=== PATIENT | male | born 1950 | race Caucasian/White ===

== ENCOUNTER → 2019-03-30 | Outpatient (CLI) | payer MEDICARE ==
[2019-03-30 10:38] LABS: African American GFR (CKD) >90 (>60 ml/min/1.73 sqM); Blood Urea Nitrogen 18 mg/dL (9-20); Non-African American GFR(CKD) >90 (>60 ml/min/1.73 sqM)
--- NOTE | 2019-03-30 11:16 | CT ---
EXAMINATION TYPE: CT angio chest DATE OF EXAM: 03/30/2019 11:03 AM COMPARISON: None HISTORY: SOB, chest pressure, cough CT DLP: 417.8 mGycm Automated exposure control for dose reduction was used. CONTRAST: CTA scan of the thorax is performed with IV Contrast, patient injected with 67 mL of Isovue 370, pulm onary embolism protocol. . FINDINGS: LUNGS: The lungs are grossly clear, there is no concerning parenchymal mass or nodule identified. T here are a few tiny pleural-based and intraparenchymal 2 mm nodules scattered throughout the bilatera l lungs, which are nonspecific. There is no pleural effusion or pneumothorax seen. The tracheobronch ial tree is patent. MEDIASTINUM: There is satisfactory enhancement of the pulmonary artery and its branches, there is no CT evidence for pulmonary embolism. There are no greater than 1 cm hilar or mediastinal lymph nodes. No pericardial effusion is seen. The ascending thoracic aorta measures up to 4.7 cm. OTHER: A large gallstone is seen in the gallbladder measuring up to 2.5 cm. IMPRESSION: NO EVIDENCE OF PULMONARY EMBOLISM. NO ACUTE INTRATHORACIC PROCESS. ECTASIA OF THE DESCENDING THORACIC AORTA MEASURING UP TO 4.7 CM. CHOLELITHIASIS.
== END | disposition home or self-care (01) ==
LOC: RADCTMAIN 09:54
PROVIDERS: ATTEND Internal Medicine Geriatric Medicine
DX: I77.810 Thoracic aortic ectasia (principal); R06.02 Shortness of breath
CPT/HCPCS: 82565; 84520; 71275; 36415; Q9967

== ENCOUNTER 2021-10-26 20:48 | Inpatient (IN) | payer MEDICARE ==
[2021-10-26] MEDS ORDERED: SODIUM CHLORIDE 0.9% 1,000 ML IV STA (21:48)
[2021-10-26] MEDS ORDERED: ONDANSETRON 4 MG/2 ML VIAL IVP STA (21:48)
[2021-10-26] MEDS ORDERED: MORPHINE SULFATE 4 MG/ML SYRINGE IV STA (21:48)
[2021-10-26] MEDS ORDERED: SODIUM CHLORIDE 0.9% 500 ML 500 ML IV STA (21:48)
--- NOTE | 2021-10-26 21:49 | ED ---
Abdominal Pain HPI - General Chief Complaint: Abdominal Pain Stated Complaint: Abd Pain Time Seen by Provider: 10/26/21 21:29 Source: patient, EMS, RN notes reviewed, old records reviewed Mode of arrival: EMS Limitations: no limitations - History of Present Illness Initial Comments: This is a 68-year-old male DF for evaluation. Patient presents today for evaluation regards to abdominal pain patient is having significant diffusion painful bowel. Most recently periumbilical. Patient states he has an episode of loose bowel movement today for bowel movements have been diminished for his normal. Patient is recently of back surgery is on significant pain medication at home. Also admits to decreased urinary output decreased overlapped appetite lack of movement as well. Patient denying any fevers. No other complaints she does have history of A. fib asthma and COPD does have history of prostate CA MD Complaint: abdominal pain, other (Increased bowel movements decreased urination) -: days(s) Location: epigastric, suprapubic Radiation: epigastric, suprapubic, L flank, R flank, bilateral flank Migration to: suprapubic Severity: moderate Severity scale (1-10): 7 Quality: cramping, aching, fullness Consistency: intermittent Improves With: nothing Worsens With: nothing Context: recent surgery/procedure Associated Symptoms: nausea, constipation Treatments Prior to Arrival: prescription analgesics, other (none) - Related Data Home Medications Medication Instructions Recorded Confirmed Acetaminophen Tab [Tylenol Tab] 1,000 mg PO Q6H PRN 10/26/21 10/26/21 Albuterol Sulfate [Ventolin HFA] 2 puff INHALATION RT-Q6H PRN 10/26/21 10/26/21 Aspirin 81 mg PO DAILY 10/26/21 10/26/21 Atorvastatin [Lipitor] 40 mg PO HS 10/26/21 10/26/21 Docusate [Colace] 100 mg PO BID 10/26/21 10/26/21 Flecainide [Tambocor] 50 mg PO BID@08,199910/26/21 10/26/21 Fluticasone/Vilanterol [Breo 1 puff INHALATION RT-DAILY 10/26/21 10/26/21 Ellipta 100-25 Mcg Inhaler] Furosemide [Lasix] 20 mg PO DAILY 10/26/21 10/26/21 Gabapentin 300 mg PO BID@0800,199910/26/21 10/26/21 Mag Hydrox/Aluminum Hyd/Simeth 30 ml PO Q8H PRN 10/26/21 10/26/21 [Mylanta Maximum Strength Liq] Magnesium Hydroxide [Milk of 2,400 mg PO Q24H PRN 10/26/21 10/26/21 Magnesia] Metoprolol Tartrate [Lopressor] 25 mg PO DAILY 10/26/21 10/26/21 Metoprolol Tartrate [Lopressor] 50 mg PO HS 10/26/21 10/26/21 Montelukast [Singulair] 10 mg PO HS 10/26/21 10/26/21 Oxybutynin Xl [Ditropan XL] 5 mg PO HS 10/26/21 10/26/21 Potassium Chloride ER [K-Dur 10] 10 meq PO DAILY 10/26/21 10/26/21 lisinopriL [Zestril] 20 mg PO BID@0800,199910/26/21 10/26/21 metFORMIN HCL [Glucophage] 1,000 mg PO BID 10/26/21 10/26/21 oxyCODONE HCL [OxyIR] 5 mg PO Q4H PRN 10/26/21 10/26/21 tiZANidine [Zanaflex] 4 mg PO Q8H PRN 10/26/21 10/26/21 Allergies Allergy/AdvReac Type Severity Reaction Status Date / Time No Known Allergies Allergy Verified 10/26/21 22:43 Review of Systems ROS Statement: Those systems with pertinent positive or pertinent negative responses have been documented in the HPI. ROS Other: All systems not noted in ROS Statement are negative. Past Medical History Past Medical History: Atrial Fibrillation, Asthma, Coronary Artery Disease (CAD), Cancer, Diabetes Mellitus, GERD/Reflux, Hyperlipidemia, Prostate Disorder Additional Past Medical History / Comment(s): back pain , prostate CA History of Any Multi-Drug Resistant Organisms: None Reported Past Surgical History: Back Surgery, Orthopedic Surgery, Prostate Surgery Additional Past Surgical History / Comment(s): right hip , Past Psychological History: No Psychological Hx Reported Smoking Status: Never smoker Past Alcohol Use History: None Reported Past Drug Use History: None Reported General Exam Limitations: no limitations General appearance: alert, in no apparent distress Head exam: Present: atraumatic, normocephalic, normal inspection Eye exam: Present: normal appearance, PERRL, EOMI. Absent: scleral icterus, conjunctival injection, periorbital swelling ENT exam: Present: normal exam, mucous membranes moist Neck exam: Present: normal inspection. Absent: tenderness, meningismus, lymphadenopathy Respiratory exam: Present: normal lung sounds bilaterally. Absent: respiratory distress, wheezes, rales, rhonchi, stridor Cardiovascular Exam: Present: normal rhythm, tachycardia, normal heart sounds. Absent: systolic murmur, diastolic murmur, rubs, gallop, clicks GI/Abdominal exam: Present: soft, tenderness, normal bowel sounds. Absent: distended, guarding, rebound, rigid Extremities exam: Present: normal inspection, full ROM, normal capillary refill. Absent: tenderness, pedal edema, joint swelling, calf tenderness Back exam: Present: normal inspection Neurological exam: Present: alert, oriented X3, CN II-XII intact Psychiatric exam: Present: normal affect, normal mood Skin exam: Present: warm, dry, intact, normal color. Absent: rash Course Vital Signs 10/26/21 10/26/21 10/27/21 20:51 22:33 00:20 Temperature 98.6 F 98.6 F Pulse Rate 104 H 99 99 Respiratory 18 18 14 Rate Blood Pressure 143/72 139/69 131/74 O2 Sat by Pulse 96 94 L 92 L Oximetry - Reevaluation(s) Reevaluation #1: 10/27/21 00:49 Medical record is reviewed Reevaluation #2: 10/27/21 00:49 Patient symptoms are unchanged here in the emergency department Reevaluation #3: 10/27/21 00:50 Patient informed results questions are answered - Consultations Consultation #1: Spoke with Dr. Amador who agrees to admit this patient with surgery consult Medical Decision Making - Medical Decision Making 70 male DF for evaluation of abdominal pain and decreased bowel output. Patient does have ileus is a postop ileus of back surgery patient is on pain medication currently. Patient be admitted for surgical evaluation management only abdominal surgery prior his prostate surgery - Lab Data Result diagrams: 10/26/21 22:46 10/26/21 22:46 Lab Results 10/26/21 10/26/21 10/26/21 Range/Units 22:46 22:46 22:46 WBC 11.3 H (3.8-10.6) k/uL RBC 3.46 L (4.30-5.90) m/uL Hgb 10.4 L (13.0-17.5) gm/dL Hct 30.9 L (39.0-53.0) % MCV 89.3 (80.0-100.0) fL MCH 30.1 (25.0-35.0) pg MCHC 33.7 (31.0-37.0) g/dL RDW 14.5 (11.5-15.5) % Plt Count 265 (150-450) k/uL MPV 7.1 Neutrophils % 71 % Lymphocytes % 18 % Monocytes % 6 % Eosinophils % 3 % Basophils % 1 % Neutrophils # 8.0 H (1.3-7.7) k/uL Lymphocytes # 2.1 (1.0-4.8) k/uL Monocytes # 0.7 (0-1.0) k/uL Eosinophils # 0.3 (0-0.7) k/uL Basophils # 0.1 (0-0.2) k/uL Sodium 133 L (137-145) mmol/L Potassium 4.0 (3.5-5.1) mmol/L Chloride 93 L (98-107) mmol/L Carbon Dioxide 31 H (22-30) mmol/L Anion Gap 9 mmol/L BUN 22 H (9-20) mg/dL Creatinine 0.77 (0.66-1.25) mg/dL Est GFR (CKD-EPI)AfAm >90 (>60 ml/min/1.73 sqM) Est GFR (CKD-EPI)NonAf >90 (>60 ml/min/1.73 sqM) Glucose 191 H (74-99) mg/dL Plasma Lactic Acid José 1.3 (0.7-2.0) mmol/L Calcium 9.2 (8.4-10.2) mg/dL Total Bilirubin 0.6 (0.2-1.3) mg/dL AST 30 (17-59) U/L ALT 17 (4-49) U/L Alkaline Phosphatase 89 (38-126) U/L Troponin I (0.000-0.034) ng/mL Total Protein 6.8 (6.3-8.2) g/dL Albumin 3.5 (3.5-5.0) g/dL Amylase 54 (30-110) U/L Lipase 161 (23-300) U/L 10/26/21 Range/Units 22:46 WBC (3.8-10.6) k/uL RBC (4.30-5.90) m/uL Hgb (13.0-17.5) gm/dL Hct (39.0-53.0) % MCV (80.0-100.0) fL MCH (25.0-35.0) pg MCHC (31.0-37.0) g/dL RDW (11.5-15.5) % Plt Count (150-450) k/uL MPV Neutrophils % % Lymphocytes % % Monocytes % % Eosinophils % % Basophils % % Neutrophils # (1.3-7.7) k/uL Lymphocytes # (1.0-4.8) k/uL Monocytes # (0-1.0) k/uL Eosinophils # (0-0.7) k/uL Basophils # (0-0.2) k/uL Sodium (137-145) mmol/L Potassium (3.5-5.1) mmol/L Chloride (98-107) mmol/L Carbon Dioxide (22-30) mmol/L Anion Gap mmol/L BUN (9-20) mg/dL Creatinine (0.66-1.25) mg/dL Est GFR (CKD-EPI)AfAm (>60 ml/min/1.73 sqM) Est GFR (CKD-EPI)NonAf (>60 ml/min/1.73 sqM) Glucose (74-99) mg/dL Plasma Lactic Acid Ojsé (0.7-2.0) mmol/L Calcium (8.4-10.2) mg/dL Total Bilirubin (0.2-1.3) mg/dL AST (17-59) U/L ALT (4-49) U/L Alkaline Phosphatase (38-126) U/L Troponin I 0.051 H* (0.000-0.034) ng/mL Total Protein (6.3-8.2) g/dL Albumin (3.5-5.0) g/dL Amylase (30-110) U/L Lipase (23-300) U/L - Radiology Data Radiology results: report reviewed (CT abdomen and pelvis positive for ileus), image reviewed Disposition Clinical Impression: Abdominal pain, Ileus Disposition: ADMITTED IP TO THIS HOSP Condition: Fair Is patient prescribed a controlled substance at d/c from ED?: No Referrals: Mio Amador MD [Primary Care Provider] - 1-2 days
[2021-10-26 23:03] LABS: Basophils # (A) 0.1 k/uL (0-0.2); Basophils % (A) 1 %; Eosinophils # (A) 0.3 k/uL (0-0.7); Eosinophils % (A) 3 %; HCT 30.9 % (39.0-53.0); HGB 10.4 gm/dL (13.0-17.5); Lymphocytes # (A) 2.1 k/uL (1.0-4.8); Lymphocytes % (A) 18 %; MCH 30.1 pg (25.0-35.0); MCHC 33.7 g/dL (31.0-37.0); MCV 89.3 fL (80.0-100.0); Mean Platelet Volume 7.1; Monocytes # (A) 0.7 k/uL (0-1.0); Monocytes % (A) 6 %; Neutrophils % (A) 71 %; Platelet Count 265 k/uL (150-450); RBC 3.46 m/uL (4.30-5.90); RDW 14.5 % (11.5-15.5); WBC 11.3 k/uL (3.8-10.6)
[2021-10-26 23:14] LABS: ALT 17 U/L (4-49); AST 30 U/L (17-59); African American GFR (CKD) >90 (>60 ml/min/1.73 sqM); Albumin 3.5 g/dL (3.5-5.0); Alkaline Phosphatase 89 U/L (38-126); Amylase 54 U/L (30-110); Anion Gap 9 mmol/L; Blood Urea Nitrogen 22 mg/dL (9-20); Calcium 9.2 mg/dL (8.4-10.2); Carbon Dioxide 31 mmol/L (22-30); Chloride 93 mmol/L (98-107); Glucose 191 mg/dL (74-99); Lipase 161 U/L (23-300); Non-African American GFR(CKD) >90 (>60 ml/min/1.73 sqM); Sodium 133 mmol/L (137-145); Total Bilirubin 0.6 mg/dL (0.2-1.3); Total Protein 6.8 g/dL (6.3-8.2)
--- NOTE | 2021-10-26 23:45 | CT ---
EXAMINATION TYPE: CT abdomen pelvis w con DATE OF EXAM: 10/26/2021 COMPARISON: None HISTORY: RUQ pain CT DLP: 1604.6 mGycm Automated exposure control for dose reduction was used. CONTRAST: Performed with IV Contrast, patient injected with 100 mL of Isovue 300. Images obtained from the diaphragm to the floor the pelvis with IV contrast. There is mild atelectasis at the lung bases. Heart size is fairly normal. There is no pericardial eff usion. There is no pleural effusion. There is large single calcified gallstone. Liver shows no focal defect. The bile ducts are not dilated. Spleen is intact. The stomach is intact. There is no evidence of pancreatic mass. There is no adrenal mass. Kidneys show satisfactory contrast opacification. There is no hydronephrosi s. Ureters are not dilated. Delayed images show normal renal excretion. There is no retroperitoneal a denopathy. Bladder distends smoothly. There is some mild stranding and fluid in the paracolic gutters bilaterally. There is small amount of fluid in the pelvis. There are multiple distended loops of large and small bowel with fluid levels. There is large bowel f luid down to the sigmoid colon. Appendix not clearly seen. No sign of thickened appendix. The lumbar vertebra have normal alignment. There is multilevel posterior fusion surgery from L2 to S1 level. No compression fracture. The bony pelvis is intact. There is right hip nailing. There are yola gical changes posteriorly with minimal subcutaneous fluid over the lumbar spine. IMPRESSION: There is fat stranding and fluid in the paracolic gutters and also in the pelvis. Gas and fluid fille d large bowel. This could relate to ileus. Appendix not seen. The possibility of mild peritonitis maisha uld be considered. Cholelithiasis. Mild atelectasis at the lung bases.
[2021-10-27] MEDS ORDERED: LORazepam 2 MG/ML INJ IV PRN (00:38)
[2021-10-27] MEDS ORDERED: NALOXONE 0.4 MG/ML 1 ML VIAL IV PRN (00:38)
[2021-10-27] MEDS ORDERED: ONDANSETRON 4 MG/2 ML VIAL IVP PRN (00:38)
[2021-10-27] MEDS ORDERED: AMPICILLIN-SULBACTAM 3 GM in SODIUM CHLORIDE 0.9% 100 ML IVPB STA (00:38)
[2021-10-27 01:50] LABS: Appearance,Urine Clear (Clear); Bilirubin,Urine Negative (Negative); Blood,Urine Negative (Negative); Color,Urine Yellow; Glucose,Urine (UA) Negative (Negative); Ketones,Urine Trace (Negative); Leukocyte Esterase,Urine Negative (Negative); Nitrite,Urine Negative (Negative); PH, Urine 5.5 (5.0-8.0); Protein,Urine Negative (Negative); Specific Gravity,Urine 1.034 (1.001-1.035); Urobilinogen,Urine <2.0 mg/dL (<2.0)
[2021-10-27] MEDS: SODIUM CHLORIDE 0.9% 1,000 ML IV SCH ×3 (02:56→17:25)
[2021-10-27] MEDS: MORPHINE SULFATE 4 MG/ML SYRINGE IV PRN ×3 (02:56→10:51)
[2021-10-27] MEDS ORDERED: MAGNESIUM HYDROXIDE 2,400 MG/10 ML CUP PO PRN (08:24)
[2021-10-27] MEDS ORDERED: MAG HYDROX/AL HYDROX/SIMETH 30 ML CUP PO PRN (08:24)
[2021-10-27] MEDS ORDERED: ACETAMINOPHEN TAB 500 MG TAB PO PRN (08:24)
[2021-10-27] MEDS ORDERED: ALBUTEROL NEBULIZED 2.5 MG/3 ML INHALATION PRN (08:24)
[2021-10-27] MEDS: ENOXAPARIN 40 MG/0.4 ML SYRINGE SQ SCH (09:52)
[2021-10-27] MEDS: METOPROLOL TARTRATE 25 MG TAB PO SCH (09:53)
[2021-10-27] MEDS: PANTOPRAZOLE 40 MG/10 ML VIAL IV SCH (09:53)
[2021-10-27] MEDS: DOCUSATE 100 MG CAP PO SCH ×3 (09:53→20:49)
[2021-10-27] MEDS: POTASSIUM CHLORIDE ER 10 MEQ TAB.ER.PRT PO SCH (09:54)
[2021-10-27] MEDS: ASPIRIN 81 MG PO SCH (09:54)
[2021-10-27] MEDS: FUROSEMIDE 20 MG TAB PO SCH (09:54)
[2021-10-27] MEDS: metFORMIN 500 MG TAB PO SCH ×2 (09:54→20:49)
[2021-10-27] MEDS ORDERED: NA PHOS,M-B/NA PHOS,DI-BA 133 ML ENEMA RECTAL ONE ×2 (10:00→17:30)
--- NOTE | 2021-10-27 10:23 | P.HPIM ---
History of Present Illness H&P Date: 10/27/21 HISTORY OF PRESENT ILLNESS 71-year-old male one of my office patient with known for over 10 years with past medical history of atherosclerotic heart disease, A. fib, asthma, history of prostate cancer and chronic lower back pain. Patient had lumbar spinal fusion by Dr. Medina at [facility] in 10/16/2021 developed to have quite bit debility mild urinary retention with slight complication started on physical therapy and was sent to [facility] rehab.. Patient has been doing well improving developed to have resolved over the last 48 hours developed to have quite distended abdomen. Was seen the nurse practitioner for Dr. Artis who is rounding on him at the time felt his abdomen to be quite but this tended ended up running a flat x-ray came back with? Of obstruction. Patient was sent to the emergency department CAT scan of the abdomen was done and showed severe ileus with no real obstruction at the time. Patient was having significant d iscomfort at the time decided to admit patient to the hospital consult general surgery watch symptoms closely make sure it's resolved there is no mechanical obstruction. REVIEW OF SYSTEMS Constitutional: No fever, no chills, no night sweats. No weight change. No weakness, fatigue or lethargy. No daytime sleepiness. EENT: No headache. No blurred vision or double vision, no loss of vision. No loss of Hearing, no ringing in the ears, no dizziness. No nasal drainage or congestion. No epistaxis. No sore throat. Lungs: No shortness of breath, cough, no sputum production. No wheezing. Cardiovascular: No chest pain, no lower extremity edema. No palpitations. No paroxysmal nocturnal dyspnea. No orthopnea. No lightheadedness or dizziness. No syncopal episodes. Abdominal: Positive distended abdomen with no bowel movement for the last 2 days but No nausea, vomiting. No diarrhea. No bloody or tarry stools.. No loss of appetite. Genitourinary: No dysuria, increased frequency, urgency. No urinary retention. Musculoskeletal: No myalgias. No muscle weakness, no gait dysfunction, no frequent falls. No back pain. No neck pain. Integumentary: No wounds, no lesions. No rash or pruritus. No unusual bruising. No change in hair or nails. Neurologic: No aphasia. No facial droop. No change in mentation. No head injury. No headache. No paralysis. No paresthesia. Psychiatric: No depression. No anxiety. No mood swings. Endocrine: No abnormal blood sugars. No weight change. No excessive sweating or thirst. No cold intolerance. SOCIAL HISTORY He does not smoke, no alcohol abuse, does not use any CPAP or BiPAP and oxygen at home. He is and lives with his . FAMILY HISTORY Patient had 3 children one of them passed from bradycardia tumor, other 2 are living and well. He had 4 siblings his brother from stroke at age 56 one of his sister had uterine cancer and other 2 are living and well. Patient's father age 76 from [place] and mother at 62 from CVA. PHYSICAL EXAMINATION Gen: This is a well-developed no acute respiratory distress. HEENT: Head is atraumatic, normocephalic. Pupils equal, round. Sclerae is anicteric. NECK: Supple. No JVD. No lymphadenopathy. No thyromegaly. LUNGS: Clear to auscultation. No wheezes or rhonchi. No intercostal retractions. HEART: Irregular rate and rhythm. S1, S2, positive S3, positive systolic murm ur. ABDOMEN: Soft. Bowel sounds are present. Had distended abdomen with no tenderness or mass. EXTREMITIES: No pedal edema. No calf tenderness. NEUROLOGICAL: Patient is awake, alert and oriented x3. Cranial nerves 2 through 12 are grossly intact. Back: Incision in the midline of the lumbar spine looks very clean normal still cover with antibiotic dressing. No tenderness around the site. ASSESSMENT AND PLAN 1. Abdominal pain: Secondary to ileus and partial obstruction, patient will be hospitalized see general surgery run another x-ray of the abdomen continue co nservative management with hydration make sure patient is able to have bowel movement. 2 very large ileus: Continue to support at [facility] electrolyte imbalance, Dulcolax suppository and Fleet enema will be giving see if patient move his bowel to resolve was going on with him. 3 lower back pain: Post lumbar spine fusion done 12 days ago at [facility] and patient is recovering nicely doing well. 4 debility: Was not able to ambulate and walk safely after he left the hospital patient was transferred to rehab in [facility]. 5 A. fib: Has been well controlled on Tambocor patient is not in any anticoagulation. 6 hyperlipidemia: Has been on atorvastatin 40 mg daily resume medication. 7 history of prostate cancer: Has been in remission and doing well. 8 chronic pain management: Remain on gabapentin 300 mg twice a day and oxycodone 5 mg every 4 hours as needed. Continue Zanaflex as well. 9 history of asthma: Remain on review left 100/25 g inhaler is still on Si ngulair 10 mg a day and Ventolin HFA. 10 Type 2 diabetes: With A1c running around 6.5 patient still on metformin 1000 mg twice a day continue medication continue Accu-Chek with sliding scales coverage. 11 DVT prophylaxis: Continue patient on Lovenox 30 mg subcutaneous daily. 12 GI prophylaxis: Continue patient on pantoprazole IV. CODE STATUS: Full code Patient will be admitted to the hospital for a minimum of 2 night stay. Past Medical History Past Medical History: Atrial Fibrillation, Asthma, Coronary Artery Disease (CAD), Cancer, Diabetes Mellitus, GERD/Reflux, Hyperlipidemia, Prostate Disorder Additional Past Medical History / Comment(s): back pain , prostate CA History of Any Multi-Drug Resistant Organisms: None Reported Past Surgical History: Back Surgery, Orthopedic Surgery, Prostate Surgery Additional Past Surgical History / Comment(s): right hip , Past Psychological History: No Psychological Hx Reported Smoking Status: Never smoker Past Alcohol Use History: None Reported Past Drug Use History: None Reported Medications and Allergies Home Medications Medication Instructions Recorded Confirmed Type Acetaminophen Tab [Tylenol Tab] 1,000 mg PO Q6H PRN 10/26/21 10/26/21 History Albuterol Sulfate [Ventolin HFA] 2 puff INHALATION RT-Q6H PRN 10/26/21 10/26/21 History Aspirin 81 mg PO DAILY 10/26/21 10/26/21 History Atorvastatin [Lipitor] 40 mg PO HS 10/26/21 10/26/21 History Docusate [Colace] 100 mg PO BID 10/26/21 10/26/21 History Flecainide [Tambocor] 50 mg PO BID@0800,199910/26/21 10/26/21 History Fluticasone/Vilanterol [Breo 1 puff INHALATION RT-DAILY 10/26/21 10/26/21 History Ellipta 100-25 Mcg Inhaler] Furosemide [Lasix] 20 mg PO DAILY 10/26/21 10/26/21 History Gabapentin 300 mg PO BID@0800,199910/26/21 10/26/21 History Mag Hydrox/Aluminum Hyd/Simeth 30 ml PO Q8H PRN 10/26/21 10/26/21 History [Mylanta Maximum Strength Liq] Magnesium Hydroxide [Milk of 2,400 mg PO Q24H PRN 10/26/21 10/26/21 History Magnesia] Metoprolol Tartrate [Lopressor] 25 mg PO DAILY 10/26/21 10/26/21 History Metoprolol Tartrate [Lopressor] 50 mg PO HS 10/26/21 10/26/21 History Montelukast [Singulair] 10 mg PO HS 10/26/21 10/26/21 History Oxybutynin Xl [Ditropan XL] 5 mg PO HS 10/26/21 10/26/21 History Potassium Chloride ER [K-Dur 10] 10 meq PO DAILY 10/26/21 10/26/21 History lisinopriL [Zestril] 20 mg PO BID@0800,199910/26/21 10/26/21 History metFORMIN HCL [Glucophage] 1,000 mg PO BID 10/26/21 10/26/21 History oxyCODONE HCL [OxyIR] 5 mg PO Q4H PRN 10/26/21 10/26/21 History tiZANidine [Zanaflex] 4 mg PO Q8H PRN 10/26/21 10/26/21 History Allergies Allergy/AdvReac Type Severity Reaction Status Date / Time No Known Allergies Allergy Verified 10/26/21 22:43 Physical Exam Vitals: Vital Signs Temp Pulse Resp BP Pulse Ox 10/27/21 06:32 98.6 F 98 16 117/73 96 10/27/21 04:17 105 H 16 96 10/27/21 02:51 97.8 F 103 H 14 122/67 96 10/27/21 00:20 98.6 F 99 14 131/74 92 L 10/26/21 22:33 99 18 139/69 94 L 10/26/21 20:51 98.6 F 104 H 18 143/72 96 Intake and Output 10/26/21 10/27/21 10/27/21 22:59 06:59 14:59 Output Total 300 Balance -300 Output: Urine 300 Other: Weight 97.522 kg Results CBC & Chem 7: 10/26/21 22:46 10/26/21 22:46 Labs: Abnormal Lab Results - Last 24 Hours (Table) 10/26/21 10/26/21 10/26/21 Range/Units 22:46 22:46 22:46 WBC 11.3 H (3.8-10.6) k/uL RBC 3.46 L (4.30-5.90) m/uL Hgb 10.4 L (13.0-17.5) gm/dL Hct 30.9 L (39.0-53.0) % Neutrophils # 8.0 H (1.3-7.7) k/uL Sodium 133 L (137-145) mmol/L Chloride 93 L (98-107) mmol/L Carbon Dioxide 31 H (22-30) mmol/L BUN 22 H (9-20) mg/dL Glucose 191 H (74-99) mg/dL Troponin I 0.051 H* (0.000-0.034) ng/mL Urine Ketones (Negative) 10/27/21 Range/Units 01:43 WBC (3.8-10.6) k/uL RBC (4.30-5.90) m/uL Hgb (13.0-17.5) gm/dL Hct (39.0-53.0) % Neutrophils # (1.3-7.7) k/uL Sodium (137-145) mmol/L Chloride (98-107) mmol/L Carbon Dioxide (22-30) mmol/L BUN (9-20) mg/dL Glucose (74-99) mg/dL Troponin I (0.000-0.034) ng/mL Urine Ketones Trace H (Negative)
[2021-10-27 16:23] LABS: Glucose,Whole Blood 177 mg/dL (75-99)
--- NOTE | 2021-10-27 16:40 | P.GSCN ---
History of Present Illness Consult date: 10/27/21 History of present illness: 71-year-old male presented from the [facility] secondary to recent abdominal pain and abdominal distention. He had a recent lumbar spinal fusion on 10/16/2021 and has been undergoing rehab therapy at [facility]. He states that he had flatus yesterday and also had a small liquid bowel movement. Other than that, he has not had any significant bowel function. He denies any significant nausea or vomiting. CT of the abdomen and pelvis was performed that shows significant amount of gas and distention of the large bowel concerning for ileus. There is also some notable inflammatory changes in the paracolic gutters. Review of Systems All systems: negative Past Medical History Past Medical History: Atrial Fibrillation, Asthma, Coronary Artery Disease (CAD), Cancer, Diabetes Mellitus, GERD/Reflux, Hyperlipidemia, Prostate Disorder Additional Past Medical History / Comment(s): back pain , prostate CA History of Any Multi-Drug Resistant Organisms: None Reported Past Surgical History: Back Surgery, Orthopedic Surgery, Prostate Surgery Additional Past Surgical History / Comment(s): right hip , Past Anesthesia/Blood Transfusion Reactions: No Reported Reaction Past Psychological History: No Psychological Hx Reported Smoking Status: Never smoker Past Alcohol Use History: None Reported Past Drug Use History: None Reported - Past Family History Mother Family Medical History: No Reported History Medications and Allergies Home Medications Medication Instructions Recorded Confirmed Type Acetaminophen Tab [Tylenol Tab] 1,000 mg PO Q6H PRN 10/26/21 10/26/21 History Albuterol Sulfate [Ventolin HFA] 2 puff INHALATION RT-Q6H PRN 10/26/21 10/26/21 History Aspirin 81 mg PO DAILY 10/26/21 10/26/21 History Atorvastatin [Lipitor] 40 mg PO HS 10/26/21 10/26/21 History Docusate [Colace] 100 mg PO BID 10/26/21 10/26/21 History Flecainide [Tambocor] 50 mg PO BID@0800,199910/26/21 10/26/21 History Fluticasone/Vilanterol [Breo 1 puff INHALATION RT-DAILY 10/26/21 10/26/21 History Ellipta 100-25 Mcg Inhaler] Furosemide [Lasix] 20 mg PO DAILY 10/26/21 10/26/21 History Gabapentin 300 mg PO BID@0800,199910/26/21 10/26/21 History Mag Hydrox/Aluminum Hyd/Simeth 30 ml PO Q8H PRN 10/26/21 10/26/21 History [Mylanta Maximum Strength Liq] Magnesium Hydroxide [Milk of 2,400 mg PO Q24H PRN 10/26/21 10/26/21 History Magnesia] Metoprolol Tartrate [Lopressor] 25 mg PO DAILY 10/26/21 10/26/21 History Metoprolol Tartrate [Lopressor] 50 mg PO HS 10/26/21 10/26/21 History Montelukast [Singulair] 10 mg PO HS 10/26/21 10/26/21 History Oxybutynin Xl [Ditropan XL] 5 mg PO HS 10/26/21 10/26/21 History Potassium Chloride ER [K-Dur 10] 10 meq PO DAILY 10/26/21 10/26/21 History lisinopriL [Zestril] 20 mg PO BID@0800,199910/26/21 10/26/21 History metFORMIN HCL [Glucophage] 1,000 mg PO BID 10/26/21 10/26/21 History oxyCODONE HCL [OxyIR] 5 mg PO Q4H PRN 10/26/21 10/26/21 History tiZANidine [Zanaflex] 4 mg PO Q8H PRN 10/26/21 10/26/21 History Allergies Allergy/AdvReac Type Severity Reaction Status Date / Time No Known Allergies Allergy Verified 10/26/21 22:43 Surgical - Exam Osteopathic Statement: *. No significant issues noted on an osteopathic structural exam other than those noted in the History and Physical/Consult. Vital Signs Temp Pulse Resp BP Pulse Ox 98.6 F 104 H 18 143/72 96 10/26/21 20:51 10/26/21 20:51 10/26/21 20:51 10/26/21 20:51 10/26/21 20:51 - General no distress - Eyes normal ocular movement - ENT normal mucosa - Neck trachea midline - Respiratory normal respiratory effort - Abdomen Soft, mild generalized tenderness, moderate distention, no rebound, no guarding, positive bowel sounds Results - Labs 10/26/21 22:46 03/11/22 22:46 Abnormal Lab Results - Last 24 Hours (Table) 10/26/21 10/26/21 10/26/21 Range/Units 22:46 22:46 22:46 WBC 11.3 H (3.8-10.6) k/uL RBC 3.46 L (4.30-5.90) m/uL Hgb 10.4 L (13.0-17.5) gm/dL Hct 30.9 L (39.0-53.0) % Neutrophils # 8.0 H (1.3-7.7) k/uL Sodium 133 L (137-145) mmol/L Chloride 93 L (98-107) mmol/L Carbon Dioxide 31 H (22-30) mmol/L BUN 22 H (9-20) mg/dL Glucose 191 H (74-99) mg/dL POC Glucose (mg/dL) (75-99) mg/dL Troponin I 0.051 H* (0.000-0.034) ng/mL Urine Ketones (Negative) 10/27/21 10/27/21 Range/Units 01:43 16:22 WBC (3.8-10.6) k/uL RBC (4.30-5.90) m/uL Hgb (13.0-17.5) gm/dL Hct (39.0-53.0) % Neutrophils # (1.3-7.7) k/uL Sodium (137-145) mmol/L Chloride (98-107) mmol/L Carbon Dioxide (22-30) mmol/L BUN (9-20) mg/dL Glucose (74-99) mg/dL POC Glucose (mg/dL) 177 H (75-99) mg/dL Troponin I (0.000-0.034) ng/mL Urine Ketones Trace H (Negative) Diabetes panel 10/26/21 Range/Units 22:46 Sodium 133 L (137-145) mmol/L Potassium 4.0 (3.5-5.1) mmol/L Chloride 93 L (98-107) mmol/L Carbon Dioxide 31 H (22-30) mmol/L BUN 22 H (9-20) mg/dL Creatinine 0.77 (0.66-1.25) mg/dL Glucose 191 H (74-99) mg/dL Calcium 9.2 (8.4-10.2) mg/dL AST 30 (17-59) U/L ALT 17 (4-49) U/L Alkaline Phosphatase 89 (38-126) U/L Total Protein 6.8 (6.3-8.2) g/dL Albumin 3.5 (3.5-5.0) g/dL Calcium panel 10/26/21 Range/Units 22:46 Calcium 9.2 (8.4-10.2) mg/dL Albumin 3.5 (3.5-5.0) g/dL Pituitary panel 10/26/21 Range/Units 22:46 Sodium 133 L (137-145) mmol/L Potassium 4.0 (3.5-5.1) mmol/L Chloride 93 L (98-107) mmol/L Carbon Dioxide 31 H (22-30) mmol/L BUN 22 H (9-20) mg/dL Creatinine 0.77 (0.66-1.25) mg/dL Glucose 191 H (74-99) mg/dL Calcium 9.2 (8.4-10.2) mg/dL Adrenal panel 10/26/21 Range/Units 22:46 Sodium 133 L (137-145) mmol/L Potassium 4.0 (3.5-5.1) mmol/L Chloride 93 L (98-107) mmol/L Carbon Dioxide 31 H (22-30) mmol/L BUN 22 H (9-20) mg/dL Creatinine 0.77 (0.66-1.25) mg/dL Glucose 191 H (74-99) mg/dL Calcium 9.2 (8.4-10.2) mg/dL Total Bilirubin 0.6 (0.2-1.3) mg/dL AST 30 (17-59) U/L ALT 17 (4-49) U/L Alkaline Phosphatase 89 (38-126) U/L Total Protein 6.8 (6.3-8.2) g/dL Albumin 3.5 (3.5-5.0) g/dL Assessment and Plan Plan: 71-year-old male status post recent lumbar fusion procedure with what appears to be an ileus. Clinically, this does not appear to be an obstruction. On review of the CT of the abdomen and pelvis, there does appear to be some stool burden in the rectum and distal sigmoid colon. Patient is to see if enema and rectal suppository for motility purposes. I would keep the patient nothing by mouth as of now and will await further bowel function with a bowel regimen. No plan for acute surgical intervention.
[2021-10-27] MEDS: SYMBICORT 80-4.5 MCG INHALER INHALATION SCH (19:33)
[2021-10-27 20:34] LABS: Glucose,Whole Blood 159 mg/dL (75-99)
[2021-10-27] MEDS: FLECAINIDE 50 MG TAB PO SCH (20:49)
[2021-10-27] MEDS: GABAPENTIN 300 MG CAP PO SCH (20:49)
[2021-10-27] MEDS: lisinopriL 20 MG TAB PO SCH (20:49)
[2021-10-27] MEDS ORDERED: OXYBUTYNIN XL 5 MG TAB.ER.24 PO SCH (21:00)
[2021-10-27] MEDS ORDERED: METOPROLOL TARTRATE 50 MG TAB PO SCH (21:00)
[2021-10-27] MEDS ORDERED: bisacodyL 10 MG SUPP RECTAL SCH (21:00)
[2021-10-27] MEDS ORDERED: MONTELUKAST 10 MG TAB PO SCH (21:00)
[2021-10-27] MEDS ORDERED: ATORVASTATIN 40 MG TAB PO SCH (21:00)
[2021-10-28 06:09] LABS: Glucose,Whole Blood 151 mg/dL (75-99)
[2021-10-28] MEDS: DOCUSATE 100 MG CAP PO SCH (08:26)
[2021-10-28] MEDS: ENOXAPARIN 40 MG/0.4 ML SYRINGE SQ SCH (08:26)
[2021-10-28] MEDS: METOPROLOL TARTRATE 25 MG TAB PO SCH (08:26)
[2021-10-28] MEDS: lisinopriL 20 MG TAB PO SCH (08:26)
[2021-10-28] MEDS: ASPIRIN 81 MG PO SCH (08:26)
[2021-10-28] MEDS: FLECAINIDE 50 MG TAB PO SCH (08:26)
[2021-10-28] MEDS: POTASSIUM CHLORIDE ER 10 MEQ TAB.ER.PRT PO SCH (08:27)
[2021-10-28] MEDS: PANTOPRAZOLE 40 MG/10 ML VIAL IV SCH (08:27)
[2021-10-28] MEDS: FUROSEMIDE 20 MG TAB PO SCH (08:27)
[2021-10-28] MEDS: GABAPENTIN 300 MG CAP PO SCH (08:27)
[2021-10-28] MEDS: metFORMIN 500 MG TAB PO SCH (08:27)
[2021-10-28] MEDS: SYMBICORT 80-4.5 MCG INHALER INHALATION SCH (08:46)
[2021-10-28 08:50] VITALS: RESP 16; TEMP 98.4
--- NOTE | 2021-10-28 09:32 | P.PN ---
Subjective Progress Note Date: 10/28/21 Patient seen and examined at bedside. He states he is feeling much better. Has had multiple bowel movements since beginning bowel regimen. States he is hungry. Objective - Vital Signs Vital signs: Vital Signs Temp 98.4 F 10/28/21 08:41 Pulse 90 10/28/21 08:41 Resp 16 10/28/21 08:41 BP 134/80 10/28/21 08:41 Pulse Ox 94 L 10/28/21 08:41 Intake & Output 10/27/21 10/28/21 10/28/21 17:59 06:59 18:59 Intake Total Output Total Balance Weight Intake: Oral Output: Urine Other: Voiding Method # Voids # Bowel Movements - Constitutional General appearance: Present: cooperative, no acute distress - Gastrointestinal Gastrointestinal Comment(s): Soft, nontender, improved distention, no rebound, no guarding - Labs CBC & Chem 7: 10/26/21 22:46 10/26/21 22:46 Labs: Abnormal Lab Results - Last 24 Hours (Table) 10/27/21 10/27/21 10/28/21 Range/Units 16:22 20:33 06:08 POC Glucose (mg/dL) 177 H 159 H 151 H (75-99) mg/dL Microbiology - Last 24 Hours (Table) 10/27/21 05:39 Blood Culture - Preliminary Blood No Growth after 24 hours Assessment and Plan Plan: 71-year-old male with resolving ileus. Continue bowel regimen. We will advance diet. Surgically stable for discharge.
[2021-10-28 09:41] LABS: Basophils % (A) 0 %; Eosinophils # (A) 0.2 k/uL (0-0.7); Eosinophils % (A) 3 %; HCT 32.1 % (39.0-53.0); HGB 10.4 gm/dL (13.0-17.5); Hypochromasia Slight; Lymphocytes # (A) 1.5 k/uL (1.0-4.8); Lymphocytes % (A) 20 %; MCH 29.4 pg (25.0-35.0); MCHC 32.2 g/dL (31.0-37.0); MCV 91.1 fL (80.0-100.0); Mean Platelet Volume 7.3; Monocytes # (A) 0.4 k/uL (0-1.0); Monocytes % (A) 5 %; Neutrophils # (A) 5.3 k/uL (1.3-7.7); Neutrophils % (A) 70 %; Platelet Count 263 k/uL (150-450); RBC 3.53 m/uL (4.30-5.90); WBC 7.5 k/uL (3.8-10.6)
[2021-10-28 09:45] LABS: ALT 16 U/L (4-49); AST 30 U/L (17-59); African American GFR (CKD) >90 (>60 ml/min/1.73 sqM); Albumin 3.1 g/dL (3.5-5.0); Alkaline Phosphatase 83 U/L (38-126); Anion Gap 6 mmol/L; Blood Urea Nitrogen 15 mg/dL (9-20); Calcium 8.5 mg/dL (8.4-10.2); Carbon Dioxide 30 mmol/L (22-30); Chloride 99 mmol/L (98-107); Glucose 157 mg/dL (74-99); Magnesium 1.7 mg/dL (1.6-2.3); Non-African American GFR(CKD) >90 (>60 ml/min/1.73 sqM); Phosphorus 3.5 mg/dL (2.5-4.5); Potassium 3.8 mmol/L (3.5-5.1); Sodium 135 mmol/L (137-145); Total Bilirubin 0.7 mg/dL (0.2-1.3)
--- NOTE | 2021-10-28 10:06 | P.DS ---
Providers Date of admission: 10/27/21 00:38 Attending physician: Mio Amador Consults: 10/27/21 00:38 Consult Physician Routine Consulting Provider: Steven Deluna Consult Reason/Comments: Ileus,Pain Do you want consulting provider notified?: Yes Primary care physician: Mio Perry [facility] Course: HISTORY OF PRESENT ILLNESS 71-year-old male one of my office patient with known for over 10 years with past medical history of atherosclerotic heart disease, A. fib, asthma, history of prostate cancer and chronic lower back pain. Patient had lumbar spinal fusion by Dr. Medina at [facility] in 10/16/2021 developed to have quite bit debility mild urinary retention with slight complication started on physical therapy and was sent to [facility] rehab.. Patient has been doing well improving developed to have resolved over the last 48 hours developed to have quite distended abdomen. Was seen the nurse practitioner for Dr. Artis who is rounding on him at the time felt his abdomen to be quite but this tended ended up running a flat x-ray came back with? Of obstruction. Patient was sent to the emergency department CAT scan of the abdomen was done and showed severe ileus with no real obstruction at the time. Patient was having significant discomfort at the time decided to admit patient to the hospital consult general surgery watch symptoms closely make sure it's resolved there is no mechanical obstruction. 10/28: Patient is feeling much better after the Fleet enema yesterday had a large bowel movement his stomach distention and discomfort is much better. Patient will be going for flat x-ray of the abdomen today also will be giving something to eat this morning and for lunch at noon time if doing well patient once to go home, he does not want to go back to [facility] and discharged from there he'll be discharged from the hospital REVIEW OF SYSTEMS Constitutional: No fever, no chills, no night sweats. No weight change. No weakness, fatigue or lethargy. No daytime sleepiness. EENT: No headache. No blurred vision or double vision, no loss of vision. No loss of Hearing, no ringing in the ears, no dizziness. No nasal drainage or congestion. No epistaxis. No sore throat. Lungs: No shortness of breath, cough, no sputum production. No wheezing. Cardiovascular: No chest pain, no lower extremity edema. No palpitations. No paroxysmal nocturnal dyspnea. No orthopnea. No lightheadedness or dizziness. No syncopal episodes. Abdominal: Positive distended abdomen with no bowel movement for the last 2 days but No nausea, vomiting. No diarrhea. No bloody or tarry stools.. No loss of appetite. Genitourinary: No dysuria, increased frequency, urgency. No urinary retention. Musculoskeletal: No myalgias. No muscle weakness, no gait dysfunction, no frequent falls. No back pain. No neck pain. Integumentary: No wounds, no lesions. No rash or pruritus. No unusual bruising. No change in hair or nails. Neurologic: No aphasia. No facial droop. No change in mentation. No head injury. No headache. No paralysis. No paresthesia. Psychiatric: No depression. No anxiety. No mood swings. Endocrine: No abnormal blood sugars. No weight change. No excessive sweating or thirst. No cold intolerance. PHYSICAL EXAMINATION Gen: This is a well-developed no acute respiratory distress. HEENT: Head is atraumatic, normocephalic. Pupils equal, round. Sclerae is anicteric. NECK: Supple. No JVD. No lymphadenopathy. No thyromegaly. LUNGS: Clear to auscultation. No wheezes or rhonchi. No intercostal retractions. HEART: Irregular rate and rhythm. S1, S2, positive S3, positive systolic murmur. ABDOMEN: Soft. Bowel sounds are present. Had distended abdomen with no tenderness or mass. EXTREMITIES: No pedal edema. No calf tenderness. NEUROLOGICAL: Patient is awake, alert and oriented x3. Cranial nerves 2 through 12 are grossly intact. Back: Incision in the midline of the lumbar spine looks very clean normal still cover with antibiotic dressing. No tenderness around the site. ASSESSMENT AND PLAN 1. Abdominal pain: Secondary to ileus and partial obstruction, patient had regular bowel movements so far and there is no sign of obstruction at this point. 2 very large ileus: His ileus has resolved doing much better so far. General surgery has cleared him today patient will have another x-ray of the abdomen and will be going home in the afternoon. 3 lower back pain: Post lumbar spine fusion done 12 days ago at [facility] and patient is recovering nicely doing well. 4 debility: Was not able to ambulate and walk safely after he left the hospital patient was transferred to rehab in [facility]. 5 A. fib: Has been well controlled on Tambocor patient is not in any anticoagulation. 6 hyperlipidemia: Has been on atorvastatin 40 mg daily resume medication. 7 history of prostate cancer: Has been in remission and doing well. 8 chronic pain management: Remain on gabapentin 300 mg twice a day and oxycodone 5 mg every 4 hours as needed. Continue Zanaflex as well. 9 history of asthma: Remain on review left 100/25 g inhaler is still on Singulair 10 mg a day and Ventolin HFA. 10 Type 2 diabetes: With A1c running around 6.5 patient still on metformin 1000 mg twice a day continue medication continue Accu-Chek with sliding scales coverage. Patient Condition at Discharge: Fair Plan - Discharge Summary Discharge Rx Participant: No New Discharge Prescriptions: New Pantoprazole [Protonix] 40 mg PO DAILY #30 tab Continue Flecainide [Tambocor] 50 mg PO BID@ Docusate [Colace] 100 mg PO BID Potassium Chloride ER [K-Dur 10] 10 meq PO DAILY Aspirin 81 mg PO DAILY Albuterol Sulfate [Ventolin HFA] 2 puff INHALATION RT-Q6H PRN PRN Reason: airway patency oxyCODONE HCL [OxyIR] 5 mg PO Q4H PRN PRN Reason: Pain Magnesium Hydroxide [Milk of Magnesia] 2,400 mg PO Q24H PRN PRN Reason: Constipation Mag Hydrox/Aluminum Hyd/Simeth [Mylanta Maximum Strength Liq] 30 ml PO Q8H PRN PRN Reason: Indigestion & Bloating lisinopriL [Zestril] 20 mg PO BID@ Acetaminophen Tab [Tylenol] 1,000 mg PO Q6H PRN PRN Reason: Pain metFORMIN HCL [Glucophage] 1,000 mg PO BID Gabapentin 300 mg PO BID@ Metoprolol Tartrate [Lopressor] 25 mg PO DAILY Oxybutynin Xl [Ditropan XL] 5 mg PO HS Montelukast [Singulair] 10 mg PO HS Metoprolol Tartrate [Lopressor] 50 mg PO HS Furosemide [Lasix] 20 mg PO DAILY Fluticasone/Vilanterol [Breo Ellipta 100-25 Mcg Inhaler] 1 puff INHALATION RT-DAILY Atorvastatin [Lipitor] 40 mg PO HS tiZANidine [Zanaflex] 4 mg PO Q8H PRN #60 tab PRN Reason: Muscle Spasm Discharge Medication List Acetaminophen Tab [Tylenol] 1,000 mg PO Q6H PRN 10/26/21 [History] Albuterol Sulfate [Ventolin HFA] 2 puff INHALATION RT-Q6H PRN 10/26/21 [History] Aspirin 81 mg PO DAILY 10/26/21 [History] Atorvastatin [Lipitor] 40 mg PO HS 10/26/21 [History] Docusate [Colace] 100 mg PO BID 10/26/21 [History] Flecainide [Tambocor] 50 mg PO BID@799,199910/26/21 [History] Fluticasone/Vilanterol [Breo Ellipta 100-25 Mcg Inhaler] 1 puff INHALATION RT- DAILY 10/26/21 [History] Furosemide [Lasix] 20 mg PO DAILY 10/26/21 [History] Gabapentin 300 mg PO BID@799,199910/26/21 [History] Mag Hydrox/Aluminum Hyd/Simeth [Mylanta Maximum Strength Liq] 30 ml PO Q8H PRN 10/26/21 [History] Magnesium Hydroxide [Milk of Magnesia] 2,400 mg PO Q24H PRN 10/26/21 [History] Metoprolol Tartrate [Lopressor] 25 mg PO DAILY 10/26/21 [History] Metoprolol Tartrate [Lopressor] 50 mg PO HS 10/26/21 [History] Montelukast [Singulair] 10 mg PO HS 10/26/21 [History] Oxybutynin Xl [Ditropan XL] 5 mg PO HS 10/26/21 [History] Potassium Chloride ER [K-Dur 10] 10 meq PO DAILY 10/26/21 [History] lisinopriL [Zestril] 20 mg PO BID@799,199910/26/21 [History] metFORMIN HCL [Glucophage] 1,000 mg PO BID 10/26/21 [History] oxyCODONE HCL [OxyIR] 5 mg PO Q4H PRN 10/26/21 [History] Pantoprazole [Protonix] 40 mg PO DAILY #30 tab 10/28/21 [Rx] tiZANidine [Zanaflex] 4 mg PO Q8H PRN #60 tab 10/28/21 [Rx] Follow up Appointment(s)/Referral(s): Mio Amador MD [Primary Care Provider] - 1-2 days Discharge Disposition: HOME SELF-CARE
--- NOTE | 2021-10-28 10:35 | XR ---
Abdomen. HISTORY: Ileus COMPARISON: None. TECHNIQUE: 3 portable views the abdomen were obtained, 2 supine and one upright. FINDINGS: There is a moderate amount gas within the colon but there is no evidence of bowel obstruction. The lung bases are clear and there is no free air beneath the diaphragm. There is a large laminated gallstone. There are postsurgical changes of lumbar fusion and open reduction internal fixation of the right hip fracture. IMPRESSION: 1. Large laminated gallstone. 2. Moderate air-filled loop of colon but nonspecific bowel gas pattern without evidence of bowel obst ruction. 3. No free air
[2021-10-28] MEDS: SODIUM CHLORIDE 0.9% 1,000 ML IV SCH ×2 (11:52)
[2021-10-28 12:28] VITALS: BP 139/63; PULSE 86
== END 2021-10-28 14:40 | disposition home or self-care (01) | DRG 394 ==
LOC: EC 20:48 → 5NMEDONC 10-27 00:38 → 3SCARD 10-27 01:10
PROVIDERS: ADMIT Internal Medicine Geriatric Medicine; ATTEND Internal Medicine Geriatric Medicine
DX: K91.89 Other postprocedural complications and disorders of digestive system (principal); K56.7 Ileus, unspecified; Y83.8 Other surgical procedures as the cause of abnormal reaction of the patient, or of later complication, without mention of misadventure at the time of the procedure; Z98.890 Other specified postprocedural states; I25.10 Atherosclerotic heart disease of native coronary artery without angina pectoris; I48.91 Unspecified atrial fibrillation; E11.9 Type 2 diabetes mellitus without complications; E78.5 Hyperlipidemia, unspecified; J45.909 Unspecified asthma, uncomplicated; Z79.82 Long term (current) use of aspirin; Z79.84 Long term (current) use of oral hypoglycemic drugs; Z79.899 Other long term (current) drug therapy; Z82.3 Family history of stroke; Z85.46 Personal history of malignant neoplasm of prostate; Z98.1 Arthrodesis status; R33.9 Retention of urine, unspecified; R53.81 Other malaise; G89.29 Other chronic pain; M54.50 Low back pain, unspecified; K21.9 Gastro-esophageal reflux disease without esophagitis
CPT/HCPCS: 36415; 74019; 74177; 80053; 81003; 82150; 83605; 83690; 83735; 84100; 84484; 85025; 87040; 96361; 96365; 96372; 96375; 96376; 99285

== ENCOUNTER 2023-02-21 07:23 | Day surgery (SDC) | payer MEDICARE ==
[2023-02-13 15:56] VITALS: BMI 27.8
[~2023-02-21 07:23] MED LIST: ACETAMINOPHEN TAB 500 MG TAB PO PRN; DEXAMETHASONE SOD PHOSPHATE 4 MG/ML 1 ML VIAL IV ONE; HEPARIN SODIUM,PORCINE/PF 5,000 UNIT/0.5 ML SYRINGE SQ PRN; ONDANSETRON 4 MG/2 ML VIAL IVP ONE
[2023-02-21] MEDS ORDERED: LACTATED RINGERS 1,000 ML IV SCH (07:30)
[2023-02-21] MEDS ORDERED: HYDROmorphone 0.5 MG/0.5 ML SYRINGE IVP PRN (07:30)
--- NOTE | 2023-02-21 07:44 | P.GSHP ---
History of Present Illness H&P Date: 02/21/23 Chief Complaint: Chronic cholecystitis 72-year-old male with history of known gallstones. This was first identified on chest x-ray. Patient's gallstone increasing in size over time. Recent films show a 3.5 x 2.8 cm gallstone. Patient diabetic. Does not have much abdominal discomforts. No nausea or vomiting. Past Medical History Past Medical History: Atrial Fibrillation, Asthma, Coronary Artery Disease (CAD), Cancer, Diabetes Mellitus, Hyperlipidemia, Hypertension Additional Past Medical History / Comment(s): Hx prostate cancer with prostatectomy 09/17/2012., hx gout. , states episode of a-fib 10 yrs ago-no problem since. History of Any Multi-Drug Resistant Organisms: None Reported Past Surgical History: Back Surgery, Orthopedic Surgery, Prostate Surgery Additional Past Surgical History / Comment(s): Right hip surgery, right knee surgery. Past Anesthesia/Blood Transfusion Reactions: No Reported Reaction Past Psychological History: No Psychological Hx Reported Smoking Status: Never smoker Past Alcohol Use History: None Reported Past Drug Use History: None Reported - Past Family History Mother Family Medical History: No Reported History Sister(s) Family Medical History: Cancer Additional Family Medical History / Comment(s): mother lung cancer Medications and Allergies Home Medications Medication Instructions Recorded Confirmed Type Albuterol Sulfate [Ventolin HFA] 2 puff INHALATION DIRECTED PRN 10/26/21 02/13/23 History Aspirin 81 mg PO DAILY 10/26/21 02/13/23 History Flecainide [Tambocor] 50 mg PO BID 10/26/21 02/13/23 History Furosemide [Lasix] 20 mg PO BID 10/26/21 02/13/23 History Metoprolol Tartrate [Lopressor] 25 mg PO BID 10/26/21 02/13/23 History Montelukast [Singulair] 10 mg PO HS 10/26/21 02/13/23 History Oxybutynin Xl [Ditropan XL] 5 mg PO HS 10/26/21 02/13/23 History lisinopriL [Zestril] 20 mg PO BID 10/26/21 02/13/23 History Multivitamins, Thera [Multivitamin 1 tab PO DAILY 01/16/23 02/13/23 History (formulary)] [place]-3/Dha/Epa/Fish Oil [Fish Oil 1 each PO DAILY 01/16/23 02/13/23 History 1,000 mg Softgel] Rosuvastatin [Crestor] 20 mg PO HS 01/16/23 02/13/23 History sitaGLIPtin PHOS/metFORMIN HCL 1 each PO BID 01/16/23 02/13/23 History [Janumet 50-1,000 mg Tablet] Budesonide/Formoterol Fumarate 1 puff INHALATION BID 02/13/23 02/13/23 History [Symbicort 80-4.5 Mcg Inhaler] Gabapentin [Neurontin] 100 mg PO BID 02/13/23 02/13/23 History Potassium Chloride ER [K-Dur 20] 20 meq PO DAILY 02/13/23 02/13/23 History Ubidecarenone [Co Q-10] 100 mg PO DAILY 02/13/23 02/13/23 History allopurinoL 150 mg PO BID 02/13/23 02/13/23 History Allergies Allergy/AdvReac Type Severity Reaction Status Date / Time No Known Allergies Allergy Verified 02/21/23 07:40 Surgical - Exam Physical exam: General: Well-developed, well-nourished HEENT: Normocephalic, sclerae nonicteric Abdomen: Nontender, nondistended Extremities: No edema Neuro: Alert and oriented Assessment and Plan (1) Chronic cholecystitis Narrative/Plan: 72-year-old male with chronic cholecystitis. We'll proceed with laparoscopic, possible open cholecystectomy at this time. Risks of bleeding, infection, bile leak, bile duct injury, retained common bile duct stone, trocar injury, conversion to an open procedure, hernia, anesthesia related complications were reviewed. The patient understands and wishes to proceed. Current Visit: Yes Status: Acute Code(s): K81.1 - CHRONIC CHOLECYSTITIS SNOMED Code(s): 92688041
[2023-02-21 07:57] LABS: Glucose,Whole Blood 112 mg/dL (70-110)
[2023-02-21] MEDS ORDERED: fentaNYL (PF) 50 MCG/ML 2 ML AMP ONE (08:37)
[2023-02-21] MEDS ORDERED: GLYCOPYRROLATE 0.2 MG/ML 2 ML VIAL ONE (08:37)
[2023-02-21] MEDS ORDERED: SUCCINYLCHOLINE CHLORIDE 200 MG/10 ML VIAL IV ONE (08:37)
[2023-02-21] MEDS ORDERED: ROCURONIUM 10 MG/ML (5 ML VIAL) IV ONE (08:37)
[2023-02-21] MEDS ORDERED: ePHEDrine 50 MG/ML 1 ML VIAL ONE (08:37)
[2023-02-21] MEDS ORDERED: NEOSTIGMINE 1 MG/ML 10 ML VIAL ONE (08:37)
[2023-02-21] MEDS ORDERED: PROPOFOL 10 MG/ML 20 ML VIAL IV ONE (08:37)
[2023-02-21] MEDS ORDERED: LIDOCAINE 2% INJ 20 MG/ML (2 ML VIAL) ONE (08:37)
[2023-02-21] MEDS ORDERED: BUPIVACAINE (PF) 0.25% 30 ML VIAL SQ ONE ×2 (08:54)
--- NOTE | 2023-02-21 09:56 | P.OP ---
Date of Procedure: 02/21/23 Procedure(s) Performed: PREOPERATIVE DIAGNOSIS: Chronic cholecystitis POSTOPERATIVE DIAGNOSIS: Same PROCEDURE: Laparoscopic cholecystectomy SURGEON: Ysabel EBL: Minimal see anesthesia record ANESTHESIA: Gen. COMPLICATIONS: None OPERATIVE PROCEDURE: The patient was brought and placed on the operating room table in the supine position. The patient was placed under general anesthesia at that time. The abdomen was prepped and draped in the usual sterile fashion. A small vertical infraumbilical incision was made. The fascia was grasped with the Karsten forceps. The fascia was retracted anteriorly. The Veress needle was advanced into the peritoneal cavity. The saline drop test was normal. Insufflation took place up to 15 mmHg. A 5 mm optical trocar was advanced and the peritoneal cavity. 2 additional 5 mm trochars were placed in the right upper quadrant under direct visualization. A 12 mm trocar was advanced into the epigastric incision site. The gallbladder was retracted superiorly and laterally. The peritoneum overlying the infundibulum was bluntly dissected. The patient's cystic duct was visualized. The junction between the cystic duct common and hepatic duct was identified. The critical view of safety was achieved after blunt dissection. The cystic duct was then divided after placement of 3 12 mm clips on the patient's side and one on the specimen side. The cystic artery was identified and clipped as well. A small vessel was seen along the gallbladder fossa and clipped as well. The gallbladder was then removed from the liver bed using electrocautery. The gallbladder was then removed from the epigastric trocar site with an Endo Catch bag. The gallbladder fossa was irrigated with saline. There was no evidence of any bleeding or biliary drainage seen. The fascia at the 12 millimeter site was closed using a running 0 Vicryl stitch. The trochars were then removed. The skin at all 4 sites was closed using a 4-0 Monocryl stitch. Skin glue was utilized on the incision sites. At the end of this procedure the sponge and needle counts were correct. DISPOSITION: Stable to the recovery room
[2023-02-21] MEDS ORDERED: LACTATED RINGERS 1,000 ML IV ONE ×3 (09:57→10:39)
[2023-02-21 10:08] VITALS: TEMP 97.6
[2023-02-21 11:42] VITALS: PULSE 70
[2023-02-21] MEDS ORDERED: ACETAMINOPHEN TAB 325 MG TAB PO SCH (12:00)
[2023-02-21 12:05] VITALS: BP 138/70; RESP 18
[2023-02-21] MEDS ORDERED: IBUPROFEN 600 MG TAB PO SCH (13:00)
== END 2023-02-21 12:25 | disposition home or self-care (01) ==
LOC: OR 07:23
PROVIDERS: ATTEND Surgery
DX: K80.12 Calculus of gallbladder with acute and chronic cholecystitis without obstruction (principal); K31.89 Other diseases of stomach and duodenum; K31.A0 Gastric intestinal metaplasia, unspecified; E11.9 Type 2 diabetes mellitus without complications; I48.91 Unspecified atrial fibrillation; I25.10 Atherosclerotic heart disease of native coronary artery without angina pectoris; J45.909 Unspecified asthma, uncomplicated; I10 Essential (primary) hypertension; E78.5 Hyperlipidemia, unspecified; Z85.46 Personal history of malignant neoplasm of prostate; Z90.79 Acquired absence of other genital organ(s); M10.9 Gout, unspecified; Z79.82 Long term (current) use of aspirin; Z79.51 Long term (current) use of inhaled steroids; Z79.899 Other long term (current) drug therapy; Z79.84 Long term (current) use of oral hypoglycemic drugs
CPT/HCPCS: 47562; J0330; J1100; J2710; J0690; J2405; J3010; J2704; J1644; J2001; 88304